=== PATIENT | male | born 1935 | race Asian ===

== ENCOUNTER 2019-05-27 18:12 | Emergency (ER) | payer OTHER ==
[~2019-05-27] VITALS: Ht 172.7 cm; Wt 85.7 kg
[2019-05-27 18:24] VITALS: BP 174/72; TEMP 97.9
[2019-05-27 18:40] LABS: PLATELET COUNT 221 K/uL (142-355)
[2019-05-27 18:55] LABS: POTASSIUM 4.1 mmol/L (3.6-5.2)
[2019-05-27] MEDS ORDERED: TRESIBA FL100 UNIT/M SC (23:30)
[2019-05-27] MEDS ORDERED: AMLODIPINE BESYLATE PO (23:32)
[2019-05-27] MEDS ORDERED: ISOS30TA17 PO (23:33)
[2019-05-27] MEDS ORDERED: LOPRESSOR100 MG PO (23:35)
[2019-05-27] MEDS ORDERED: CLOPIDOGREL75 MG PO (23:36)
[2019-05-27] MEDS ORDERED: ESCITALOPRAM5 MG PO (23:37)
[2019-05-27] MEDS ORDERED: FURO20TA67 PO (23:38)
[2019-05-27] MEDS ORDERED: HALOPERIDOL0.5 MG PO (23:39)
[2019-05-27] MEDS ORDERED: BUSPIRONE HYDRO15 MG PO (23:39)
[2019-05-27] MEDS ORDERED: TAMSULOSIN HYD0.4 MG PO (23:40)
[2019-05-27] MEDS ORDERED: ZIPRASIDONE HCL80 MG PO (23:41)
[2019-05-27] MEDS ORDERED: DIVA500T2 PO (23:42)
[2019-05-27] MEDS ORDERED: LIPITOR10 MG PO (23:44)
[2019-05-27] MEDS ORDERED: RANI150T78 PO (23:45)
[2019-05-27] MEDS ORDERED: TRAZODONE300 MG PO (23:46)
[2019-05-27] MEDS ORDERED: HALO5INJ3 IM (23:48)
[2019-05-27] MEDS ORDERED: TAMS0.4C PO (23:52)
[2019-05-27] MEDS ORDERED: HUMULIN R100 UNIT/M SC (23:58)
[2019-05-28] MEDS ORDERED: DEXT50IN8 IV (00:03)
== END 2019-05-27 19:35 | disposition other institution (70) ==
LOC: ED 18:12
PROVIDERS: Family Medicine
DX: F91.8 Other conduct disorders (principal); Z04.6 Encounter for general psychiatric examination, requested by authority; I10 Essential (primary) hypertension
CPT/HCPCS: 80053; 81000; 85027; 93005; 99283; 99285